=== PATIENT | male | born 1980 | race Two or more races ===

== ENCOUNTER → 2020-02-02 | Outpatient (CLI) | payer OTHER ==
--- NOTE | 2020-02-02 15:15 | RAD ---
INDICATION: Reason: ABD PAIN / Spl. Instructions: / History: COMPARISON: None. TECHNIQUE: Grayscale and color ultrasound images obtained through the abdomen. FINDINGS: Aorta/IVC: Largely obscured Pancreas: Largely obscured by overlying structures Liver: Echogenic Gallbladder: Partially contracted without definite stones. Common Bile Duct: Not dilated. Right Kidney: No hydronephrosis. Left Kidney: No hydronephrosis. Limited visualization secondary to overlying structures obscuring. Spleen: Mildly prominent in size, 12 cm IMPRESSION: * Liver is echogenic. Nonspecific but can be seen with fatty infiltration. * Partially contracted gallbladder without definite stones. Electronically signed by: Moy Lopez MD (02/02/2020 3:13 PM) [id number]
== END ==
LOC: US 12:50 → EEVIPCON 12:50
PROVIDERS: ATTEND Preventive Medicine Occupational Medicine
DX: K76.0 Fatty (change of) liver, not elsewhere classified (principal); K82.0 Obstruction of gallbladder
CPT/HCPCS: 76700

== ENCOUNTER → 2020-03-16 | Outpatient (CLI) | payer OTHER | LOC: SPEC 06:33 → EEVIPCON 06:33 | PROVIDERS: ATTEND Nurse Practitioner | DX: D57.3 Sickle-cell trait (principal) | CPT/HCPCS: 85045 ==